=== PATIENT | female | born 1965 | race Caucasian/White ===

== ENCOUNTER 2016-07-03 17:55 | Emergency (ER) | payer OTHER ==
[2016-07-03 18:00] VITALS: TEMP 98.7; BMI 23.9
[2016-07-03] MEDS ORDERED: ACETAMINOPHEN 325 MG TABLET (FP) PO ONE (18:24)
--- NOTE | 2016-07-03 18:28 | PDOC ---
History of Present Illness <Leda Salazar - Last Filed: 07/03/16 23:36> - General History Source: Patient, [employer] Used ([id number]) - History of Present Illness Initial Comments: 07/03/16 18:25 50 yr female denies any medical history presents to ER with 2 days of headache not improved with aleve, left arm and left leg "cramping" numbness. Pt denies shortness of breath no fever or chills no foreign travel. Pt denies vision changes or slurred speech. Pt c/o left sided chest pain 2 days ago none now. 07/03/16 18:26 Timing/Duration: other (2 days ) Severity: mild Associated Symptoms: reports: chest pain, headaches <Cuca Etienne - Last Filed: 07/04/16 14:45> - General Chief Complaint: Pain Stated Complaint: LT ARM PAIN/HEADACHE Time Seen by Provider: 07/03/16 18:07 Past History <Leda Salazar - Last Filed: 07/03/16 23:36> - Past Medical History Cancer: Yes (12 yrs ago) - Surgical History Abdominal Surgery: Yes Cholecystectomy: Yes - Psycho/Social/Smoking Cessation Hx Anxiety: No Suicidal Ideation: No Smoking History: Never smoked Have you smoked in the past 12 months: No Hx Alcohol Use: No Drug/Substance Use Hx: No Substance Use Type: None <Cuca Etienne - Last Filed: 07/04/16 14:45> - Past Medical History Allergies/Adverse Reactions: Allergies Allergy/AdvReac Type Severity Reaction Status Date / Time No Known Allergies Allergy Verified 07/03/16 17:56 Home Medications: Ambulatory Orders NK [No Known Home Medication] 07/03/16 Review of Systems - Review of Systems Able to Perform ROS?: Yes Is the patient limited Maltese proficient: Yes Constitutional: No: Symptoms Reported HEENTM: No: Symptoms Reported Respiratory: No: Symptoms reported Cardiac (ROS): Yes: See HPI ABD/GI: No: Symptoms Reported : No: Symptoms Reported Musculoskeletal: Yes: Symptoms Reported, See HPI Integumentary: No: Symptoms Reported Neurological: Yes: See HPI, Headache <Cuca Etienne - Last Filed: 07/04/16 14:45> *Physical Exam - Vital Signs Last Vital Signs Temp Pulse Resp BP Pulse Ox 98.7 F 107 H 19 122/76 100 07/03/16 17:57 07/03/16 17:57 07/03/16 17:57 07/03/16 17:57 07/03/16 17:57 <Leda Salazar - Last Filed: 07/03/16 23:36> - Vital Signs Last Vital Signs Temp Pulse Resp BP Pulse Ox 98.7 F 107 H 19 122/76 100 07/03/16 17:57 07/03/16 17:57 07/03/16 17:57 07/03/16 17:57 07/03/16 17:57 - Physical Exam General Appearance: Yes: Nourished, Appropriately Dressed HEENT: positive: EOMI, URSULA, Normal ENT Inspection, TMs Normal, Pharynx Normal Neck: positive: Supple. negative: Tender Respiratory/Chest: positive: Lungs Clear, Normal Breath Sounds Cardiovascular: positive: Regular Rhythm, Regular Rate Gastrointestinal/Abdominal: positive: Normal Bowel Sounds, Soft Musculoskeletal: positive: Normal Inspection Extremity: positive: Normal Capillary Refill, Normal Inspection, Normal Range of Motion. negative: Tender Integumentary: positive: Normal Color, Dry, Warm Neurologic: positive: Fully Oriented, Alert, Normal Mood/Affect, Normal Response , Motor Strength 5/5, Finger to Nose (intact ), Other (strength bilateral UE and lower extremities intact equal grasps ) <Cuca Etienne - Last Filed: 07/04/16 14:45> Heart Score/ECG Review - History History: Slightly suspicious - Electrocardiogram EKG: Normal - Age Age: 45-65 - Risk Factors Based on the list above the patient has:: No risk factors known - ECG Intrepretation Rhythm: Regular Rhythm - ECG Impressions Normal ECG: Yes Non-specific ST Elevation: No Ischemic Changes: No Comment:: 07/03/16 19:00 EKG changed from previous 2013 EKG signed by ER attending <Cuca Etienne - Last Filed: 07/04/16 14:45> ED Treatment Course - LABORATORY CBC & Chemistry Diagram: 07/03/16 19:00 07/03/16 19:00 - ADDITIONAL ORDERS Additional order review: Laboratory Results 07/03/16 07/03/16 07/03/16 22:40 19:25 19:00 Sodium Potassium Chloride Carbon Dioxide Anion Gap BUN Creatinine Creat Clearance w eGFR Random Glucose Calcium Total Bilirubin AST ALT Alkaline Phosphatase Creatine Kinase 66 Troponin I < 0.02 Total Protein Albumin Cholesterol 230 H Urine HCG, Qual Negative 07/03/16 19:00 Sodium 139 Potassium 4.1 Chloride 106 Carbon Dioxide 25 Anion Gap 8 BUN 21 H Creatinine 0.7 D Creat Clearance w eGFR > 60 Random Glucose 87 Calcium 8.5 Total Bilirubin 0.3 D AST 16 D ALT 24 D Alkaline Phosphatase 60 Creatine Kinase 69 Troponin I < 0.02 Total Protein 7.6 Albumin 4.0 Cholesterol Urine HCG, Qual 07/03/16 19:00 RBC 4.27 MCV 84.0 MCHC 32.9 RDW 13.0 MPV 9.1 - RADIOLOGY Radiology Studies Ordered: Category Date Time Status CHEST PA & LAT [RAD] Stat Radiology 07/03/16 20:39 Taken - Medications Given in the ED: ED Medications Discontinued Medications Generic Name Dose Route Start Last Admin Trade Name Freq PRN Reason Stop Dose Admin Acetaminophen 650 mg 07/03/16 18:24 07/03/16 18:53 Tylenol - PO 07/03/16 18:25 650 mg ONCE ONE Administration Diphenhydramine HCl 25 mg 07/03/16 20:58 07/03/16 21:18 Benadryl Injection - IVPUSH 07/03/16 20:59 25 mg ONCE ONE Administration Ketorolac Tromethamine 30 mg 07/03/16 20:57 07/03/16 21:18 Toradol Injection - IVPUSH 07/03/16 20:58 30 mg ONCE ONE Administration Metoclopramide HCl 10 mg 07/03/16 20:57 07/03/16 21:18 Reglan Injection - IVPB 07/03/16 20:58 10 mg ONCE ONE Administration <Leda Salazar - Last Filed: 07/03/16 23:36> - LABORATORY CBC & Chemistry Diagram: 07/03/16 19:00 07/03/16 19:00 - RADIOLOGY Radiology Studies Ordered: Category Date Time Status HEAD CT WITHOUT CONTRAST [CT] Stat CT Scan 07/03/16 18:22 Ordered <Cuca Etienne - Last Filed: 07/04/16 14:45> Medical Decision Making - Medical Decision Making 07/03/16 18:28 cc: headache, left arm pain , leg pain for 2 days left sided chest pain yesterday none today neg nausea will r/o CVA r/o ACS labs, ekg, head ct pt signed out to in main ER for further workup pt transfered to bed 7 per relief charge nurseJOHN Morgan 07/03/16 18:56 <Cuca Etienne - Last Filed: 07/04/16 14:45> *DC/Admit/Observation/Transfer <Leda Salazar - Last Filed: 07/03/16 23:36> <Cuca Etienne - Last Filed: 07/04/16 14:45> Diagnosis at time of Disposition: Arm pain, left Headache Qualifiers: Headache type: tension-type Headache chronicity pattern: unspecified pattern Intractability: not intractable Qualified Code(s): G44.209 - Tension-type headache, unspecified, not intractable - Discharge Dispostion Disposition: HOME Condition at time of disposition: Stable - Referrals Referrals: Zoe Contreras MD [Primary Care Provider] - - Patient Instructions Printed Discharge Instructions: DI for Hormonal and Tension Headaches, DI for Arm Pain Additional Instructions: please follow up with your regular physician
[2016-07-03] MEDS ORDERED: ACETAMINOPHEN 325 MG TABLET (FP) ONE (18:45)
[2016-07-03 19:18] LABS: MCH 27.6 pg (25.7-33.7); MCHC 32.9 g/dl (32.0-36.0); MEAN PLT VOLUME 9.1 fl (7.5-11.1); PLATELET COUNT 277 K/MM3 (134-434); WHITE BLOOD COUNT 9.3 K/mm3 (4.0-10.0)
[2016-07-03 20:36] LABS: ANION GAP 8 (8-16); CALCIUM 8.5 mg/dL (8.5-10.1); CO2 25 mmol/L (21-32); CREATININE 0.7 mg/dL (0.55-1.02); GLUCOSE,RANDOM 87 mg/dL (74-106); SGOT/AST 16 U/L (15-37); SGPT/ALT 24 U/L (12-78)
[2016-07-03 20:54] LABS: ALK PHOS 60 U/L (45-117); BILIRUBIN,TOTAL 0.3 mg/dL (0.2-1.0); TOT PROT 7.6 g/dl (6.4-8.2); TROPONIN I < 0.02 ng/ml (0.00-0.05)
[2016-07-03] MEDS ORDERED: METOCLOPRAMIDE HCL INJECTION 10 MG/2 ML VIAL IVPB ONE (20:57)
[2016-07-03] MEDS ORDERED: KETOROLAC TROMETHAMINE 30 MG/1 ML VIAL IVPUSH ONE (20:57)
[2016-07-03] MEDS ORDERED: METOCLOPRAMIDE HCL INJECTION 10 MG/2 ML VIAL ONE (21:01)
[2016-07-03] MEDS ORDERED: KETOROLAC TROMETHAMINE 30 MG/1 ML VIAL ONE (21:01)
[2016-07-03 23:30] LABS: TROPONIN I < 0.02 ng/ml (0.00-0.05)
[2016-07-03 23:44] VITALS: BP 118/70; PULSE 86
--- NOTE | 2016-07-03 23:44 | PDOC ---
History of Present Illness <Leda Salazar - Last Filed: 07/03/16 23:44> - General History Source: Patient Exam Limitations: No Limitations - History of Present Illness Initial Comments: 07/03/16 23:46 The patient is a 50 year old female, with a significant past medical history of cervical CA (12 year ago) s/p LEEP, who presents to the emergency department with headache, neck pain and left arm tingling. She reports that her headache ranges from moderate to severe, rating it a 9/10 in severity, localized in right frontal region, without radiation or modifying factors. She notes that her neck pain is mild and intermittent in nature. She states that she has left upper extremity tingling that radiates from her shoulder to her hand. She notes that is mostly localized in her forearm and hand. She denies any numbness or weakness. The patient denies chest pain, shortness of breath and dizziness. Denies fever, chills, nausea, vomit, diarrhea and constipation. Allergies: None Past surgical history: LEEP, cholecystectomy Family History: Sisters (colon CA at age 50)(Pancreas CA also at age 50). Father (stomach CA). NH, CVA (Mother at age 80) Social history: No alcohol, tobacco or drug use reported <Jacoby Smith - Last Filed: 07/03/16 23:51> - General Chief Complaint: Pain Stated Complaint: LT ARM PAIN/HEADACHE Time Seen by Provider: 07/03/16 18:07 Past History - Past Medical History Cancer: Yes (12 yrs ago) - Surgical History Abdominal Surgery: Yes Cholecystectomy: Yes - Psycho/Social/Smoking Cessation Hx Anxiety: No Suicidal Ideation: No Smoking History: Never smoked Have you smoked in the past 12 months: No Hx Alcohol Use: No Drug/Substance Use Hx: No Substance Use Type: None <Leda Salazar - Last Filed: 07/03/16 23:44> <Jacoby Smith - Last Filed: 07/03/16 23:51> - Past Medical History Allergies/Adverse Reactions: Allergies Allergy/AdvReac Type Severity Reaction Status Date / Time No Known Allergies Allergy Verified 07/03/16 17:56 Home Medications: Ambulatory Orders NK [No Known Home Medication] 07/03/16 Review of Systems - Review of Systems Is the patient limited Iraqi proficient: Yes <Leda Salazar - Last Filed: 07/03/16 23:44> - Review of Systems Able to Perform ROS?: Yes Comments:: 07/03/16 23:47 GENERAL/CONSTITUTIONAL: No fever or chills. No weakness. HEAD, EYES, EARS, NOSE AND THROAT: No change in vision. No ear pain or discharge. No sore throat. CARDIOVASCULAR: No chest pain or shortness of breath RESPIRATORY: No cough, wheezing, or hemoptysis. GASTROINTESTINAL: No nausea, vomiting, diarrhea or constipation. GENITOURINARY: No dysuria, frequency, or change in urination. MUSCULOSKELETAL: +Neck pain. No joint or muscle swelling or pain. No back pain. EXTREMITIES: +Left arm tingling. SKIN: No rash NEUROLOGIC: +Headache. No vertigo, loss of consciousness, or change in strength/ sensation. ENDOCRINE: No increased thirst. No abnormal weight change HEMATOLOGIC/LYMPHATIC: No anemia, easy bleeding, or history of blood clots. ALLERGIC/IMMUNOLOGIC: No hives or skin allergy. <Jacoby Smith - Last Filed: 07/03/16 23:51> *Physical Exam - Vital Signs Last Vital Signs Temp Pulse Resp BP Pulse Ox 98.7 F 107 H 19 122/76 100 07/03/16 17:57 07/03/16 17:57 07/03/16 17:57 07/03/16 17:57 07/03/16 17:57 <Leda Salazar - Last Filed: 07/03/16 23:44> - Vital Signs Last Vital Signs Temp Pulse Resp BP Pulse Ox 98.7 F 86 18 118/70 100 07/03/16 17:57 07/03/16 23:44 07/03/16 23:44 07/03/16 23:44 07/03/16 23:44 - Physical Exam Comments: 07/03/16 23:51 GENERAL: Awake, alert, and fully oriented, in no acute distress HEAD: No signs of trauma, normocephalic, atraumatic EYES: PERRLA, EOMI, sclera anicteric, conjunctiva clear ENT: Auricles normal inspection, hearing grossly normal, nares patent, oropharynx clear without exudates. Moist mucosa NECK: Normal ROM, supple, no lymphadenopathy, JVD, or masses LUNGS: No distress, speaks full sentences, clear to auscultation bilaterally HEART: Regular rate and rhythm, normal S1 and S2, no murmurs, rubs or gallops, peripheral pulses normal and equal bilaterally. ABDOMEN: Soft, nontender, normoactive bowel sounds. No guarding, no rebound. No masses EXTREMITIES: Normal inspection, Normal range of motion, no edema. No clubbing or cyanosis. NEUROLOGICAL: Cranial nerves II through XII grossly intact. Normal speech, normal gait, no focal sensorimotor deficits SKIN: Warm, Dry, normal turgor, no rashes or lesions noted. <Jacoby Smith - Last Filed: 07/03/16 23:51> ED Treatment Course - LABORATORY CBC & Chemistry Diagram: 07/03/16 19:00 07/03/16 19:00 - ADDITIONAL ORDERS Additional order review: Laboratory Results 07/03/16 07/03/16 07/03/16 22:40 19:25 19:00 Sodium Potassium Chloride Carbon Dioxide Anion Gap BUN Creatinine Creat Clearance w eGFR Random Glucose Calcium Total Bilirubin AST ALT Alkaline Phosphatase Creatine Kinase 66 Troponin I < 0.02 Total Protein Albumin Cholesterol 230 H Urine HCG, Qual Negative 07/03/16 19:00 Sodium 139 Potassium 4.1 Chloride 106 Carbon Dioxide 25 Anion Gap 8 BUN 21 H Creatinine 0.7 D Creat Clearance w eGFR > 60 Random Glucose 87 Calcium 8.5 Total Bilirubin 0.3 D AST 16 D ALT 24 D Alkaline Phosphatase 60 Creatine Kinase 69 Troponin I < 0.02 Total Protein 7.6 Albumin 4.0 Cholesterol Urine HCG, Qual 07/03/16 19:00 RBC 4.27 MCV 84.0 MCHC 32.9 RDW 13.0 MPV 9.1 - RADIOLOGY Radiology Studies Ordered: Category Date Time Status CHEST PA & LAT [RAD] Stat Radiology 07/03/16 20:39 Taken - Medications Given in the ED: ED Medications Discontinued Medications Generic Name Dose Route Start Last Admin Trade Name Freq PRN Reason Stop Dose Admin Acetaminophen 650 mg 07/03/16 18:24 07/03/16 18:53 Tylenol - PO 07/03/16 18:25 650 mg ONCE ONE Administration Diphenhydramine HCl 25 mg 07/03/16 20:58 07/03/16 21:18 Benadryl Injection - IVPUSH 07/03/16 20:59 25 mg ONCE ONE Administration Ketorolac Tromethamine 30 mg 07/03/16 20:57 07/03/16 21:18 Toradol Injection - IVPUSH 07/03/16 20:58 30 mg ONCE ONE Administration Metoclopramide HCl 10 mg 07/03/16 20:57 07/03/16 21:18 Reglan Injection - IVPB 07/03/16 20:58 10 mg ONCE ONE Administration <Leda Salazar - Last Filed: 07/03/16 23:44> - LABORATORY CBC & Chemistry Diagram: 07/03/16 19:00 07/03/16 19:00 - ADDITIONAL ORDERS Additional order review: Laboratory Results 07/03/16 07/03/16 07/03/16 22:40 19:25 19:00 Sodium Potassium Chloride Carbon Dioxide Anion Gap BUN Creatinine Creat Clearance w eGFR Random Glucose Calcium Total Bilirubin AST ALT Alkaline Phosphatase Creatine Kinase 66 Troponin I < 0.02 Total Protein Albumin Cholesterol 230 H Urine HCG, Qual Negative 07/03/16 19:00 Sodium 139 Potassium 4.1 Chloride 106 Carbon Dioxide 25 Anion Gap 8 BUN 21 H Creatinine 0.7 D Creat Clearance w eGFR > 60 Random Glucose 87 Calcium 8.5 Total Bilirubin 0.3 D AST 16 D ALT 24 D Alkaline Phosphatase 60 Creatine Kinase 69 Troponin I < 0.02 Total Protein 7.6 Albumin 4.0 Cholesterol Urine HCG, Qual 07/03/16 19:00 RBC 4.27 MCV 84.0 MCHC 32.9 RDW 13.0 MPV 9.1 - Medications Given in the ED: ED Medications Discontinued Medications Generic Name Dose Route Start Last Admin Trade Name Marta PRN Reason Stop Dose Admin Acetaminophen 650 mg 07/03/16 18:24 07/03/16 18:53 Tylenol - PO 07/03/16 18:25 650 mg ONCE ONE Administration Diphenhydramine HCl 25 mg 07/03/16 20:58 07/03/16 21:18 Benadryl Injection - IVPUSH 07/03/16 20:59 25 mg ONCE ONE Administration Ketorolac Tromethamine 30 mg 07/03/16 20:57 07/03/16 21:18 Toradol Injection - IVPUSH 07/03/16 20:58 30 mg ONCE ONE Administration Metoclopramide HCl 10 mg 07/03/16 20:57 07/03/16 21:18 Reglan Injection - IVPB 07/03/16 20:58 10 mg ONCE ONE Administration <Jacoby Smith - Last Filed: 07/03/16 23:51> *DC/Admit/Observation/Transfer <Leda Salazar - Last Filed: 07/03/16 23:44> - Attestations Scribe Attestion: 07/03/16 23:51 Documentation prepared by Jacoby Smith, acting as medical billing instructor for Leda Salazar MD <Jacoby Smith - Last Filed: 07/03/16 23:51> Diagnosis at time of Disposition: Arm pain, left Headache Qualifiers: Headache type: tension-type Headache chronicity pattern: unspecified pattern Intractability: not intractable Qualified Code(s): G44.209 - Tension-type headache, unspecified, not intractable - Discharge Dispostion Disposition: HOME Condition at time of disposition: Stable - Referrals Referrals: Zoe Contreras MD [Primary Care Provider] - - Patient Instructions Printed Discharge Instructions: DI for Hormonal and Tension Headaches, DI for Arm Pain Additional Instructions: please follow up with your regular physician - Post Discharge Activity
--- NOTE | 2016-07-05 17:15 | EKG ---
Test Reason : Blood Pressure : / mmHG Vent. Rate : 085 BPM Atrial Rate : 085 BPM P-R Int : 160 ms QRS Dur : 088 ms QT Int : 356 ms P-R-T Axes : 060 055 044 degrees QTc Int : 423 ms NORMAL SINUS RHYTHM WITH SINUS ARRHYTHMIA ANTERIOR INFARCT , AGE UNDETERMINED ABNORMAL ECG WHEN COMPARED WITH ECG OF 16-FEB-2014 13:29, T WAVE INVERSION NOW EVIDENT IN ANTERIOR LEADS Confirmed by STEFANY SAMUELS, MELITON ([id number]) on 07/05/2016 5:14:57 PM Referred By: Confirmed By:MELITON MCCALL MD
== END 2016-07-03 23:44 | disposition home or self-care (01) ==
LOC: JERFT 17:55 → JER 17:55
PROC: 3E0333Z Introduction of Anti-inflammatory into Peripheral Vein, Percutaneous Approach (ICD-10-PCS; principal; 2016-07-03)
PROC: 3E033GC Introduction of Other Therapeutic Substance into Peripheral Vein, Percutaneous Approach (ICD-10-PCS; 2016-07-03)
DX: G44.209 Tension-type headache, unspecified, not intractable (principal)
CPT/HCPCS: 36415; 70450-TC; 71020-TC; 80053; 82465; 82550; 84484; 84703; 85027; 93005; 93010; 99283-25

== ENCOUNTER 2017-08-13 19:57 | Emergency (ER) | payer OTHER | END 2017-08-13 21:42 | disposition home or self-care (01) | LOC: JERFT 19:57 | PROC: 3E0233Z Introduction of Anti-inflammatory into Muscle, Percutaneous Approach (ICD-10-PCS; principal; 2017-08-13) | CPT/HCPCS: 99281-25 ==

== ENCOUNTER 2018-02-15 18:23 | Emergency (ER) | payer OTHER ==
--- NOTE | 2018-02-15 18:40 | PDOC ---
Rapid Medical Evaluation Chief Complaint: Pain Time Seen by Provider: 02/15/18 18:35 Medical Evaluation: Allergies Allergy/AdvReac Type Severity Reaction Status Date / Time No Known Allergies Allergy Verified 08/13/17 20:06 02/15/18 18:37 I have performed a brief in person evaluation of this patient. The patient presents with a CC of: right breast pain x 1 day Pt complains of right breast pain x 1 day. She has had routine mammograms and had a breast biopsy three years ago and this was negative. Mammogram is scheduled for next week. Pt has a hx of uterine cancer. No family hx of breast CA. PE: Skin: clear Lungs: Clear Heart: RRR MS: Moves all extremities without difficulty. Psych: Age appropriate. The patient will proceed to the ED for further evaluation. 02/15/18 18:39 Discharge Disposition - Diagnosis Breast pain - Referrals - Patient Instructions - Post Discharge Activity
[2018-02-15 18:44] VITALS: BP 112/66; PULSE 74; TEMP 98; BMI 21.9
--- NOTE | 2018-02-15 20:12 | PDOC ---
History of Present Illness - General Chief Complaint: Pain Stated Complaint: PAIN, ACUTE Time Seen by Provider: 02/15/18 18:35 History Source: Patient Exam Limitations: No Limitations - History of Present Illness Initial Comments: Patient is a 52-year-old female with a history of uterine cancer who states that she has had right breast pain 2-3 days. She does have a mammogram scheduled for next week. Previously she has had abnormal mammograms with biopsies all of which have been negative. Patient denies fever, denies nipple retraction or discharge. Pain is a 4 out of 10. Patient denies aggravating or relieving factors. 02/15/18 20:06 Past History - Travel Traveled outside of the country in the last 30 days: No Close contact w/someone who was outside of country & ill: No - Past Medical History Allergies/Adverse Reactions: Allergies Allergy/AdvReac Type Severity Reaction Status Date / Time No Known Allergies Allergy Verified 02/15/18 18:36 Home Medications: Ambulatory Orders Hydrocodone/Acetaminophen [Hydrocodone-Acetamin 5-325 mg] 1 each PO TID #10 tablet MDD 3 02/15/18 Cancer: Yes (UTERINE CA 12 yrs ago) COPD: No - Surgical History Abdominal Surgery: Yes Cholecystectomy: Yes - Immunization History Immunization Up to Date: Yes - Suicide/Smoking/Psychosocial Hx Smoking History: Never smoked Have you smoked in the past 12 months: No Information on smoking cessation initiated: No Hx Alcohol Use: No Drug/Substance Use Hx: No Substance Use Type: None Review of Systems - Review of Systems Able to Perform ROS?: Yes Constitutional: No: Chills, Fever All Other Systems: Reviewed and Negative *Physical Exam - Vital Signs Last Vital Signs Temp Pulse Resp BP Pulse Ox 98.0 F 74 16 112/66 100 02/15/18 18:37 02/15/18 18:37 02/15/18 18:37 02/15/18 18:37 02/15/18 18:37 - Physical Exam Comments: Constitutional: VS stated, pt appears in no apparent distress; sitting in chair. Skin: Warm and dry. Intact, no lesions or excoriations. Head: Normocephalic; atraumatic Eyes: conjunctiva pink without injection or discharge. Throat: Oropharynx with pink and moist mucosa. Lungs: Bilateral breath sounds clear upon auscultation. No adventitious breath sounds. Heart: Regular rate and rhythm, S1/S2 auscultated. No murmurs, rubs, or gallops. No visible pulsations, heaves, or lifts on precordium. Breats: Breast are equal bilaterally. No nipple discharge. No pea d'orange. No axillary lymphadenopathy. Pt has a 2 x 2 cm area in the right outer quadrant that is painful to the touch. Abdomen: Soft and non-tender. Bowel sounds present in all 4 quadrants, no hepatosplenomegaly, No bruits auscultated. No guarding or rebound. No masses or visible pulsations present. No suprapubic tenderness. No CVAT. No bruits. Musculoskeletal: Moves all extremities without difficulty. Neurologic: Awake, alert. Conversation fluent. 02/15/18 20:10 *DC/Admit/Observation/Transfer Diagnosis at time of Disposition: Breast pain - Discharge Dispostion Disposition: HOME Decision to Admit order: No - Prescriptions Prescriptions: Hydrocodone/Acetaminophen [Hydrocodone-Acetamin 5-325 mg] 1 each PO TID #10 tablet MDD 3 - Referrals Referrals: Zoe Contreras MD [Primary Care Provider] - - Patient Instructions Printed Discharge Instructions: DI for Breast Pain (Mastalgia) - Post Discharge Activity
== END 2018-02-15 20:35 | disposition home or self-care (01) ==
LOC: JERFT 18:23
DX: N64.4 Mastodynia (principal); Z85.42 Personal history of malignant neoplasm of other parts of uterus
CPT/HCPCS: 99281-25

== ENCOUNTER 2018-05-20 10:21 | Emergency (ER) | payer OTHER ==
[2018-05-20 10:30] VITALS: BP 114/66; PULSE 125; TEMP 99.3; BMI 26.2
--- NOTE | 2018-05-20 10:55 | PDOC ---
History of Present Illness - General Chief Complaint: Respiratory Stated Complaint: FLU LIKE SYMPTOMS Time Seen by Provider: 05/20/18 10:50 History Source: Patient Exam Limitations: No Limitations - History of Present Illness Initial Comments: 05/20/18 10:50 Onset of fevers, chills, headache earache and sore throat pain yesterday, with body aches. States has been nauseated and has a nonproductive cough. Receive flu shot 2 weeks ago Timing/Duration: reports: changing over time, getting worse Severity: reports: moderate Associated Symptoms: reports: cough, earache, facial pain, fever/chills, nasal congestion, nasal drainage, sore throat Past History - Travel Traveled outside of the country in the last 30 days: No Close contact w/someone who was outside of country & ill: No - Past Medical History Allergies/Adverse Reactions: Allergies Allergy/AdvReac Type Severity Reaction Status Date / Time No Known Allergies Allergy Verified 05/20/18 10:30 Home Medications: Ambulatory Orders Oseltamivir Phosphate [Tamiflu -] 75 mg PO BID #10 capsule 05/20/18 Cancer: Yes (12 yrs ago) COPD: No Other medical history: arthritis - Surgical History Abdominal Surgery: Yes Cholecystectomy: Yes - Immunization History Immunization Up to Date: Yes - Suicide/Smoking/Psychosocial Hx Smoking History: Never smoked Have you smoked in the past 12 months: No Hx Alcohol Use: No Drug/Substance Use Hx: No Substance Use Type: None Review of Systems - Review of Systems Able to Perform ROS?: Yes Is the patient limited Yakut proficient: Yes Constitutional: Yes: Symptoms Reported, See HPI, Chills, Fever, Loss of Appetite , Malaise HEENTM: Yes: Symptoms Reported, See HPI, Nose Congestion, Throat Pain Respiratory: Yes: Symptoms reported, See HPI, Cough Integumentary: Yes: Symptoms Reported, See HPI Neurological: Yes: Symptoms reported, See HPI, Headache All Other Systems: Reviewed and Negative *Physical Exam - Vital Signs Last Vital Signs Temp Pulse Resp BP Pulse Ox 99.3 F 125 H 20 114/66 99 05/20/18 10:28 05/20/18 10:28 05/20/18 10:28 05/20/18 10:28 05/20/18 10:28 - Physical Exam Comments: 05/20/18 10:56 GENERAL: [The child is awake, alert, and appropriately interactive.] EYES: [The pupils are equal, round, and reactive to light, with clear, conjunctiva.but glassy] NOSE: [The nose with clear drainage EARS: [The ear canals and tympanic membranes are congested but landmarks easily visualed ] THROAT: [The oropharynx is clear with erythema, no exudates. The mucous membranes are moist.] NECK: [The neck is supple with mildly tender adenopathy, no menigemous] CHEST: [The lungs are coarse but clear without crackles, or wheezes.] HEART: [Heart is regular rhythm, with normal S1 and S2, no murmurs.] ABDOMEN: [The abdomen is soft and nontender with normal bowel sounds. There is no organomegaly and no mass. There is no guarding or rebound.] EXTREMITIES: [Extremities are normal.] NEURO: [Behavior is normal for age.cranky but easily,m Tone is normal.] SKIN: [Skin is unremarkable without rash or swelling. There is no bruising, and there are no other signs of injury.] General Appearance: Yes: Nourished, Appropriately Dressed, Apparent Distress Moderate Sedation - Procedure Monitoring Vital Signs: Procedure Monitoring Vital Signs Temperature 99.3 F 05/20/18 10:28 Pulse Rate 125 H 05/20/18 10:28 Respiratory Rate 20 05/20/18 10:28 Blood Pressure 114/66 05/20/18 10:28 O2 Sat by Pulse Oximetry (%) 99 05/20/18 10:28 Progress Note - Progress Note Progress Note: Clinically appears flu and dull, will treat with Tamiflu as falls within window *DC/Admit/Observation/Transfer Diagnosis at time of Disposition: Influenzal acute upper respiratory infection - Discharge Dispostion Disposition: HOME Condition at time of disposition: Stable Decision to Admit order: No - Referrals Referrals: Zoe Contreras MD [Primary Care Provider] - - Patient Instructions Printed Discharge Instructions: DI for Viral Upper Respiratory Infection -- Adult Additional Instructions: Rest, drink lots of fluids: Teas, water, soups, Pedialyte Saltwater gargles Steamy showers/seem to face break up mucus Old-fashioned treatments help! Avoid contact with others until fevers and cough resolved as this is very contagious Lots of handwashing and good hygiene Continue [id number] medications for symptomatic relief Tylenol or Motrin for fever and pain Take all of Tamiflu as directed: 1 tab every 12 hours for 5 days Followup with private physician in one to 2 days as needed or if worsening Return to emergency department for worsened symptoms, fevers, dehydration Influenza takes between 5 and 7 days for resolution To not participate in any activity, work, or school until fevers and cough are gone for at least one day - Post Discharge Activity Forms/Work/School Notes: Back to Work
== END 2018-05-20 11:24 | disposition home or self-care (01) ==
LOC: JERFT 10:21
DX: J11.1 Influenza due to unidentified influenza virus with other respiratory manifestations (principal)
CPT/HCPCS: 99281-25